=== PATIENT | male | born 1940 | race Caucasian/White ===

== ENCOUNTER 2024-06-22 18:18 | Inpatient (IN) | payer MEDICARE, OTHER, SELFPAY ==
[2024-06-22] VITALS (7 sets, daily range): BP systolic 95–137; BP diastolic 51–105; BMI 25.8; BMI 24.9
[2024-06-22 12:48] LABS: % Basophils 0.2 % (0-2); % Immature Granulocytes 0.5 % (0-0.5); % Lymphocytes 16.9 % (20.5-51.1); % Monocytes 15.1 % (1.7-9.3); % Neutrophils 67.3 % (42.2-75.2); Absolute Lymphocytes 1.1 10^3/uL (1.2-3.4); Absolute Neutrophils 4.4 10^3/uL (1.4-6.5); Hematocrit 36.5 % (39.0-52.0); Hemoglobin 12.1 g/dL (13.0-18.0); Mean Corp Hgb Conc. 33.2 g/dL (33.0-37.0); Mean Corpuscular Hgb 31.4 pg (27.0-31.0); Mean Corpuscular Volume 94.8 fL (80.0-94.0); Mean Platelet Volume 10.3 fL (7.4-10.4); Nucleated Red Blood Cells % 0 % (-); Platelet Count 169 10^3/uL (130-400); Red Blood Cell Count 3.85 10^6/uL (4.70-6.10); Red Cell Dist. Width 12.9 % (11.5-14.5); White Blood Cell Count 6.5 10^3/uL (4.8-10.8)
[2024-06-22 13:16] LABS: ALT (SGPT) 48 U/L (0-50); AST (SGOT) 59 U/L (17-59); Albumin 4.2 g/dl (3.5-5.0); Alkaline Phosphatase 69 U/L (38-126); Blood Urea Nitrogen 17 mg/dl (9-20); Calcium 8.6 mg/dl (8.4-10.2); Carbon Dioxide 26 mmol/L (22-30); Chloride 102 mmol/L (98-107); Glucose 110 mg/dl (70-99); Potassium 4.2 mmol/L (3.5-5.1); Sodium 135 mmol/L (135-145); Total Bilirubin 0.6 mg/dl (0.2-1.3); eGFR > 60.00
--- NOTE | 2024-06-22 14:40 | ED.GENMED ---
History of Present Illness
General
Chief Complaint: Cold/Flu/URI Symptoms
Source: patient and spouse
Exam Limitations: none
Time Seen by Provider: 06/22/24 14:26
Nursing documentation reviewed up to this point in time: agreed with
History of Present Illness
History of Present Illness:
Patient to ED with complaint of fever/chills, sorethroat, SOB. Tested pos for Covid on saturday. Placed on paxlovid by PCP yesterday. states this AM his pulse ox was reading 88%. Reports increasing weakness, increasing chest congestion.
Brought to ED by for eval.
Past History
Past History
ED Past Medical History: Arrthythmia, HTN and Other (CPAP, diverticulosis, vertigo, transient global amnesia)
ED Past Surgical History: Cardiac (Pacemaker), Orthopedic (Hip replacement, right hand surgery) and Other (Artery repair, hernia repair)
Social History
Tobacco: Non-smoker
Alcohol: Occasional
Drug: None
Personal:
Living: with family
Employment: Retired
Review of Systems
Review of Systems
Allergies reviewed?: Yes
All Other Systems: ROS reviewed and negative except as documented in HPI and ROS
Constitutional: Reports fever, fatigue and chills
EENT: Reports no symptoms
Respiratory: Reports cough and trouble breathing
Cardiac: Reports no symptoms
ABD/GI: Reports no symptoms
: Reports no symptoms
Musculoskeletal: Reports no symptoms
Skin: Reports no symptoms
Neurological: Reports weakness
Psychiatric: Reports no symptoms
Phy Exam
General Physical Exam
General Presentation: well appearing and no apparent distress
General age: appears stated age
General Skin: warm and dry
General Habitus: normal
General Mental: alert
ENT Exam
ENT Exam: TM's normal, neck supple, pharyngeal erythema and swallowing well
Cardiovascular Exam
Cardiovascular Exam: regular rate/rhythm and no edema
Pulmonary Exam
Pulmonary Exam: chest non tender and decreased breath sounds
Musculoskeletal Exam
Musculoskeletal Exam: full ROM and neuro vasc intact
Skin Exam
Skin Exam: normal color, warm/dry and no rash
Psychiatric Exam
Psychiatric Exam: normal mood/affect
Course
Orders/Labs/Results
Orders:
Orders
06/22/24 12:42
Complete Blood Count/With Diff Urgent
Comprehensive Metabolic Panel Urgent
06/22/24 14:39
0.9% Sodium Chloride 1000 ml [Nss] 1,000 ml IV BOLUS
Acetaminophen [Tylenol] 1,000 mg PO NOW STA
CR Chest - 2 Views Urgent
Comment:
Reason For Exam: SOB, COVID +
06/22/24 14:40
Albuterol [ProAIR HFA INHALER] 2 puff INH R NOW STA
06/22/24 14:42
0.9% Sodium Chloride 1000 ml [Nss] 1,000 ml IV BOLUS
06/22/24 Dinner
Regular
At Your Request: Full Participation
06/22/24 15:49
Meclizine [Antivert] 25 mg PO NOW STA
06/22/24 16:00
Dexamethasone Sod Phosphate [Decadron] 10 mg IV NOW STA
06/22/24 16:31
Admit/Transfer Patient As Directed
Co-Sign Provider:
Level of Care: Inpatient admission
Assign to:: Medical/Surgical
Physician / Group: vishal malcolm
Diagnosis: covid, hypoxia
Reason for Hospitalization: covid, hypoxia
Expected length of stay greater than two midnights?: Yes
ELOS- Estimated Length of Stay in days: 2
I certify the patient meets the requirements for IP care: Yes
PRN Pain Medication Management As Directed
May give lesser potent ordered pain med per pt: Yes
preference::
Protocol:: Medication orders for pain may be administered in a
manner that supports deferring to patient preference
when the pt is:
- Requesting an ordered lesser potent pain medication.
Least to most potent pain medications are defined
as: acetaminophen < NSAID < tramadol < opioids
(morphine, oxycodone, hydromorphone).
- Requesting a lesser dose of the same medication IF
ORDERED.
- Requesting a less intrusive route of administration
if both routes are prescribed by the provider (PO <
IV).
06/22/24 16:33
Code Status As Directed
Resuscitation Status: Full Code
06/22/24 16:58
Add On- LAB Urgent
Tests Added?: INR
06/22/24 19:29
0.9% Sodium Chloride 1000 ml [Nss] 1,000 ml IV 75 mls/hr
Acetaminophen [Tylenol] 650 mg PO Q4HPRN PRN
Albuterol [ProAIR HFA INHALER] 4 puff INH R QID
Benzonatate [Tessalon Perles] 100 mg PO TIDPRN PRN
Enoxaparin Sodium [Lovenox] 40 mg SC QPM
Guaifenesin [Mucinex] 600 mg PO Q12
Meclizine [Antivert] 25 mg PO Q8HPRN PRN
Ondansetron Injectable [Zofran] 4 mg IV Q6HPRN PRN
Promethazine/Codeine [Phenergan with Codeine Syrup] 5 ml PO Q4HPRN PRN
06/22/24 19:29
Activity As Directed
Activity Level: Ambulate
Vital Signs As Directed
Frequency: Per unit guidelines
Pt Eval And Treat Routine
Activity Level: Ambulate
DX Deep Vein Thrombosis Video Routine
06/22/24 20:00
Carvedilol [Coreg] 12.5 mg PO BID
Nirmatrelvir/Ritonavir [Paxlovid 2X150 mg-100 mg Dose Pack] 1 dose PO BID
06/22/24 22:00
Warfarin [Coumadin] 7.5 mg PO MOFR@0
omega 8-xyl-ihe-fish oil [Fish Oil] 1 cap PO HS
06/23/24 06:00
BMP [Basic Metabolic Panel] IN AM
CBC/No Diff [Complete Blood Count/No Diff] IN AM
CRP [C-Reactive Protein] IN AM
Ferritin IN AM
Procalcitonin IN AM
PCT Algorithmm Indication: Respiratory
Prothrombin Time IN AM
06/23/24 08:00
Cholecalciferol (Vitamin D3) [VITAMIN D3 (cholecalciferol)] 50 mcg PO DAILY
Dexamethasone Sod Phosphate [Decadron] 6 mg IV Q24H
06/23/24 22:00
Warfarin [Coumadin] 5 mg PO SUTUWETHSA@0
06/24/24 06:00
Prothrombin Time IN AM
06/25/24 06:00
Prothrombin Time IN AM
06/26/24 06:00
Prothrombin Time IN AM
06/27/24 06:00
Prothrombin Time IN AM
06/28/24 06:00
Prothrombin Time IN AM
Abnormal Lab Results
06/22/24
12:42
RBC 3.85 L 10^6/uL
(4.70-6.10)
Hgb 12.1 L g/dL
(13.0-18.0)
Hct 36.5 L %
(39.0-52.0)
MCV 94.8 H fL
(80.0-94.0)
MCH 31.4 H pg
(27.0-31.0)
Absolute Lymphs (auto) 1.1 L 10^3/uL
(1.2-3.4)
Absolute Monos (auto) 1.0 H 10^3/uL
(0.1-0.6)
Lymphocytes % 16.9 L %
(20.5-51.1)
Monocytes % 15.1 H %
(1.7-9.3)
Glucose 110 H mg/dl
(70-99)
06/22/24 12:42
06/22/24 12:42
Vital Signs
Initial and Last Documented VS:
Initial Vital Signs
Temp Pulse Resp BP Pulse Ox
101.0 F H 65 20 137/105 97
06/22/24 12:32 06/22/24 12:32 06/22/24 12:32 06/22/24 12:32 06/22/24 12:32
Last Documented Vital Signs
Temp Pulse Resp BP Pulse Ox
97.8 F 70 20 107/51 96
06/22/24 19:36 06/22/24 19:36 06/22/24 19:36 06/22/24 19:36 06/22/24 19:36
*Radiology
Radiology exam reviewed: radiology read reviewed
*Pulse Oximetry
Patient hypoxic: yes
*Critical Care Note
Total Time (30-74mins, 75-104mins- exclusive of procedures): Not Applicable
Update Note
Update Note:
Patient to ED with complaint of SOB, low pulse ox readings at home. 88%RA in ED. Placed on 2LNC, pulse ox 93%. +cough. No cp/pressure. Started on paxlovid yesterday by PCP. CXR NAD. Will admit to hospitalist nilson Giraldo hypoxemia.
ED Attending Note
-
Portions of this chart may have been created with voice recognition software.� Occasional wrong word or��sound alike� substitutions may have occurred due to the inherent limitations of voice recognition software.
Discharge Plan
Departure
Patient Disposition: Admit
Date of Disposition: 06/22/24
Time of Disposition: 15:58
Presentation/result/management discussed w/ accepting MD/DO: Hospitalist
Patient with high blood pressure during this ER visit?: No
Condition: Fair
Covid-19: Not Applicable
Discharge Problem:
COVID-19, Hypoxemia
Interventions
Interventions:
*Risk Screen - Suicide Last Done: 06/22/24 12:32
*General Assessment Last Done: 06/22/24 12:32
*Neglect/Abuse Screening Last Done: 06/22/24 12:32
*Nursing Disposition Last Done: 06/22/24 19:34
ED- Pulmonary Assessment Last Done: 06/22/24 16:16
Discharge Date and Time
Discharge Date/Time: 06/22/24 19:34
[2024-06-22] MEDS: TYLENOL 1000 MG PO (14:57)
[2024-06-22] MEDS: NSS 1000 IV ×2 (15:08→21:45)
[2024-06-22] MEDS: ProAIR HFA INHALER 2 PUFF INH (15:47)
--- NOTE | 2024-06-22 16:14 | HPS.HSE ---
Family Physician
-
Family Physician: Jess Sanchez
Chief Complaint
-
cough/SOB
History of Present Illness
83-year-old male with a past medical history of atrial fibrillation on coumadin, hypertension, vertigo, and transient global amnesia presents with cough, shortness of breath, sore throat, fever, and chills. Patient has been having the symptoms for
3 days, and they have worsened. Patient tested positive for COVID 3 days ago on 06/19/2024. He was started on Paxlovid by his PCP yesterday. Despite this, he feels weak, and his symptoms have worsened. He reports nausea, denies vomiting. No
chest pain, no diarrhea.
Medical History
Past Medical History
Past Medical History: Reports Other
Additional Past Medical History:
Vertigo
Transient global amnesia
Atrial fibrillation
Hypertension
Diverticulosis
Past Surgical History: Reports Other
Additional Past Surgical History:
Permanent pacemaker placement
Hip replacement
Right hand surgery
Artery repair
Hernia repair
Social History
Tobacco: Non-smoker
Alcohol: Occasional
Drug: None
Personal:
Living: With Family
Family History
Family History: Not pertinent
Allergies / Home Medications
Allergies reflects when Allergies were last updated in [employer].
Home Medications with original date entered in [employer]
Allergy/Medication List:
Allergies
Allergy/AdvReac Type Severity Reaction Status Date / Time
hayfever Allergy sneezing;te Uncoded 06/22/24 12:37
ars
Home Medications Table - record
�Medication �Instructions �Recorded �Confirmed
meclizine 25 mg tablet 25 mg PO Q8HPRN PRN nausea or 11/21/21
vertigo #12 tabs
acetaminophen 650 mg 650 mg PO HSPRN PRN mild pain 06/22/24 06/22/24
tablet,extended release
carvedilol 25 mg tablet 25 mg PO BID 06/22/24 06/22/24
cholecalciferol (vitamin D3) 50 50 mcg PO DAILY 06/22/24 06/22/24
mcg (2,000 unit) tablet (Vitamin
D3)
lisinopril 5 mg tablet 5 mg PO DAILY 06/22/24 06/22/24
magnesium oxide 200 mg PO DAILY 06/22/24 06/22/24
nirmatrelvir 300 mg (150 mg 0 ea PO .COMPLEX 06/22/24 06/22/24
x2)-ritonavir 100 mg tablet,dose
pack (Paxlovid)
omega 3-jfk-izf-fish oil 1,000 mg 1 cap PO HS 06/22/24 06/22/24
(120 mg-180 mg) capsule (Fish Oil)
sodium hyaluronate 1 drp BOTH EYES DAILY 06/22/24 06/22/24
vitamin B complex 1 tab PO DAILY 06/22/24 06/22/24
warfarin 5 mg tablet 5 mg PO SUTUWETHSA@219906/22/24 06/22/24
warfarin 5 mg tablet 7.5 mg PO MOFR@219906/22/24 06/22/24
Review of Systems
-
A 12 point ROS was completed and negative except as noted: Yes
Physical Exam
Vital Signs
Vital Signs
Temp Pulse Resp BP Pulse Ox
98.8 F 65 31 123/73 95
06/22/24 15:09 06/22/24 16:04 06/22/24 16:04 06/22/24 15:09 06/22/24 16:04
Physical Exam
General: No Apparent Distress and Other (Appears to not feel well)
HEENT: NormoCephalic, Anicteric and Moist mucous membranes
Respiratory: Rhonchi and Crackles
Cardiac: S1/S2 and Regular Rhythm
GI: Soft, Non Tender, Non Distended and Normal Bowel Sounds
Musculoskeletal: No Clubbing, No Cyanosis and No Edema
Skin: Warm and Dry
Neuro: Awake and Alert
Laboratory Results
-
06/22/24 12:42
06/22/24 12:42
Laboratory Results
Total Bilirubin 0.6 mg/dl (0.2-1.3) 06/22/24 12:42
AST 59 U/L (17-59) 06/22/24 12:42
ALT 48 U/L (0-50) 06/22/24 12:42
Alkaline Phosphatase 69 U/L (38-126) 06/22/24 12:42
Impression/Plan
-
HPI: 83-year-old male with a past medical history of atrial fibrillation on coumadin, hypertension, vertigo, and transient global amnesia presents with cough, shortness of breath, sore throat, fever, and chills. Patient has been having the symptoms
for 3 days, and they have worsened. Patient tested positive for COVID 3 days ago on 06/19/2024. He was started on Paxlovid by his PCP yesterday. Despite this, he feels weak, and his symptoms have worsened. He reports nausea, denies vomiting. No
chest pain, no diarrhea.
#Acute hypoxic respiratory insufficiency
#Acute coronavirus infection
Patient has been vaccinated and boostered multiple times
Satting 88% on room air, 93% on 2 L
Continue home Paxlovid day 2, start dexamethasone day 1
Supportive care, Mucinex, wean oxygen as tolerated
#Chronic vertigo
Continue meclizine as needed
#History of atrial fibrillation
Check INR
Continue Coumadin
Continue Coreg at reduced dose
#Benign essential hypertension
Blood pressure soft, hold lisinopril
DVT prophylaxis�subcu Lovenox
Full code
[2024-06-22] MEDS: ANTIVERT 25 MG PO (16:26)
[2024-06-22] MEDS: DECADRON 10 MG IV (16:26)
[2024-06-22] MEDS: ProAIR HFA INHALER 4 PUFF INH (20:08)
[2024-06-22] MEDS: ProAIR HFA INHALER INH (20:17)
[2024-06-22] MEDS: MUCINEX 600 MG PO (21:45)
[2024-06-22] MEDS: COREG 12.5 MG PO (21:45)
[2024-06-22] MEDS: PAXLOVID 2X150 MG-100 MG DOSE PACK 1 DOSE PO (22:06)
[2024-06-22 22:26] LABS: PT 26.9 Sec (11.4-14.6)
[2024-06-22] MEDS: COUMADIN 7.5 MG PO (22:55)
[2024-06-23 06:12] LABS: Hematocrit 37.3 % (39.0-52.0); Hemoglobin 12.2 g/dL (13.0-18.0); Mean Corp Hgb Conc. 32.7 g/dL (33.0-37.0); Mean Corpuscular Hgb 31.2 pg (27.0-31.0); Mean Corpuscular Volume 95.4 fL (80.0-94.0); Mean Platelet Volume 10.7 fL (7.4-10.4); Platelet Count 168 10^3/uL (130-400); Red Blood Cell Count 3.91 10^6/uL (4.70-6.10); Red Cell Dist. Width 13.1 % (11.5-14.5); White Blood Cell Count 8.3 10^3/uL (4.8-10.8)
[2024-06-23 06:13] LABS: INR 2.66; PT 28.2 Sec (11.4-14.6)
[2024-06-23 06:16] LABS: Procalcitonin 0.49 ng/ml (0.0-0.25)
[2024-06-23 06:33] LABS: Blood Urea Nitrogen 19 mg/dl (9-20); Calcium 8.9 mg/dl (8.4-10.2); Carbon Dioxide 28 mmol/L (22-30); Chloride 108 mmol/L (98-107); Estimated Creatinine Clearance 79 ml/min; Glucose 145 mg/dl (70-99); Potassium 4.2 mmol/L (3.5-5.1); Sodium 140 mmol/L (135-145); eGFR > 60.00
[2024-06-23 07:00] VITALS: BP 121/81
--- NOTE | 2024-06-23 08:06 | W.PN.HOSP.TC ---
Addendum entered and electronically signed by William Jang MD 06/26/24 14:27:
Unable to determine if patient has bacterial infection
Original Note:
Today's Communication/Plan
-
see bold
Assessment / Plan
Assessment / Plan
HPI: 83-year-old male with a past medical history of atrial fibrillation on coumadin, hypertension, vertigo, and transient global amnesia presents with cough, shortness of breath, sore throat, fever, and chills. Patient has been having the symptoms
for 3 days, and they have worsened. Patient tested positive for COVID 3 days ago on 06/19/2024. He was started on Paxlovid by his PCP yesterday. Despite this, he feels weak, and his symptoms have worsened. He reports nausea, denies vomiting. No
chest pain, no diarrhea.
#Acute hypoxic respiratory insufficiency
#Acute coronavirus infection
Patient has been vaccinated and boostered multiple times
Satting 88% on room air, 93% on 2 L
Hypoxia resolved, currently satting 96% on room air
Shortness of breath resolved, cough improving
Procalcitonin elevated, given 1 dose of IV Rocephin today, will discharge on cefdinir to complete a 5-day course
Currently on dexamethasone day 2, no need for steroids upon discharge
Medically stable for discharge, can finish his Paxlovid he has at home
Isolate, follow-up PCP in 1 week
PT rec HH
#Chronic vertigo
Continue meclizine as needed
#History of atrial fibrillation
Continue Coumadin
Continue Coreg
#Benign essential hypertension
Blood pressure improved, resume lisinopril upon discharge
DVT prophylaxis�subcu Lovenox
Full code
Physical Exam
General: No acute distress
HEENT: Normocephalic, Atraumatic, EOMI, MMM
Respiratory: Coarse breath sounds with occasional rhonchi
Cardiac: Normal S1/S2, Regular Rate and Rhythm
GI: Soft, Nontender, Nondistended, Normal Bowel Sounds
Extremities: No Clubbing, Cyanosis, or Edema
Neuro: Nonfocal/Grossly Intact
Psych: Calm, Cooperative
Derm: No Visible lesions
Anticipated Discharge: Today
Subjective/Interval History
-
Date of Service: June 23, 2024
Patient reports feeling better, shortness of breath resolved. Cough improved. His weakness has also improved. Fever resolved.
Objective Data
-
Labs:
Laboratory Results
06/22/24 06/23/24
22:02 05:28
WBC 8.3
Hgb 12.2 L
Hct 37.3 L
Plt Count 168
PT 26.9 H 28.2 H
INR 2.50 2.66
Sodium 140
Potassium 4.2
Chloride 108 H
Carbon Dioxide 28
BUN 19
Creatinine 0.8
Glucose 145 H
Calcium 8.9
Vital Signs:
Vital Signs
Temp Pulse Resp BP Pulse Ox
98.2 F 70 20 116/87 93
06/22/24 23:13 06/22/24 23:13 06/22/24 23:13 06/22/24 23:13 06/23/24 00:28
I&O
06/22/24 06/23/24 06/24/24
06:59 06:59 06:59
Intake Total 850 / 850
Output Total 1100 / 1100
Balance -250 / -250
[2024-06-23] MEDS: ProAIR HFA INHALER 4 PUFF INH ×2 (08:18→11:34)
[2024-06-23] MEDS: MUCINEX 600 MG PO (08:40)
[2024-06-23] MEDS: COREG 12.5 MG PO (08:40)
[2024-06-23] MEDS: PAXLOVID 2X150 MG-100 MG DOSE PACK 1 DOSE PO (08:40)
[2024-06-23] MEDS: DECADRON 6 MG IV (08:42)
[2024-06-23] MEDS: VITAMIN D3 (cholecalciferol) 50 MCG PO (08:42)
[2024-06-23] MEDS: NSS 1000 IV (08:45)
[2024-06-23] MEDS: STERILE WATER FOR INJECTION 10 ML IV (08:52)
[2024-06-23] MEDS: ROCEPHIN 1000 MG IV (08:52)
[2024-06-23 15:00] VITALS: BP 96/58
[2024-06-23 16:15] VITALS: BP 106/63; BP 127/69; PULSE 62; O2SAT 97
--- NOTE | 2024-06-23 16:28 | W.DCSUMMARY ---
Discharge Summary
Discharge Data
Date of Admission: 06/22/24
Date of Discharge: 06/23/24
-
Pending Results: No
Hospital Course
Discharge diagnosis:
Acute hypoxic respiratory insufficiency
Acute coronavirus infection
Chronic vertigo
Paroxysmal atrial fibrillation on Coumadin
Benign essential hypertension
CXR:
No active pulmonary process.
Hospital course:
83-year-old male with a past medical history of atrial fibrillation on coumadin, hypertension, vertigo, and transient global amnesia was admitted for acute hypoxic respiratory insufficiency secondary to acute coronavirus infection. Patient reports
having shortness of breath, cough, sore throat, fever, and chills for 3 days. He tested positive for COVID on 06/19/2024, was started on Paxlovid by his PCP 1 day prior to admission. Despite taking his Paxlovid, his symptoms worsened. He has
received his COVID vaccinations, and multiple boosters.
Patient was found to be hypoxic, satting 88% on room air. He was placed on 2 L of oxygen. Chest x-ray was negative for acute cardiopulmonary disease. He received IV dexamethasone. He was continued on Paxlovid. He also received supportive
treatment with Mucinex, and bronchodilators.
Patient was found to have an elevated procalcitonin, and he received IV Rocephin to cover for bacterial superinfection.
By the following day, he made a remarkable turnaround. His shortness of breath and hypoxia resolved. He did not require any oxygen with ambulation. He was seen in conjunction with physical therapy, who recommends home PT. Patient is medically
stable for discharge. He can finish his Paxlovid that he has at home, and he has been prescribed cefdinir to complete a 5-day course to cover for bacterial superinfection. He has been instructed to isolate, and follow-up with his primary care
doctor in 1 week.
Disposition: Home self-care, declined home visiting nurses
Discharge planning: Required 42 minutes
Discharge Plan
-
Patient Disposition: Home with Home Care
Discharge Diagnosis/Procedures: Acute hypoxic respiratory insufficiency, coronavirus
Condition: Fair
Diet: Regular
Activity: As tolerated
Driving Restrictions: As prior to admission
Activity Restrictions/Additional Instructions:
Rest, drink plenty of fluids. Isolate at home for 5 days.
Start taking the antibiotic cefdinir on 06/24/2024.
Follow-up with your primary care doctor in 1 week.
Referrals:
Fly,Jess, DO [Family Provider] - in one week
Prescriptions:
New
cefdinir 300 mg capsule
300 mg PO BID 5 Days Qty: 10 0RF
guaifenesin 600 mg Tablet Extended Release 12hr
600 mg PO Q12 Qty: 20 0RF
Continued
meclizine 25 MG tablet
25 mg PO Q8HPRN PRN (Reason: nausea or vertigo) Qty: 12 0RF
Patient Comments:
06/22/24: spouse states they still have some, but have not taken any in some time. No records of refill in [facility], may be an old bottle.
carvedilol 25 mg Tablet
25 mg PO BID
acetaminophen 650 mg Tablet Extended Release
650 mg PO HSPRN PRN (Reason: mild pain)
warfarin 5 mg Tablet
5 mg PO SUTUWETHSA@2200
warfarin 5 mg Tablet
7.5 mg PO MOFR@2200
vitamin B complex Tablet
1 tab PO DAILY
lisinopril 5 mg Tablet
5 mg PO DAILY
cholecalciferol (vitamin D3) [Vitamin D3] 50 mcg (2,000 unit) Tablet
50 mcg PO DAILY
omega 2-etq-bbe-fish oil [Fish Oil] 1,000 mg (120 mg-180 mg) Capsule
1 cap PO HS
magnesium oxide 200 mg magnesium Tablet
200 mg PO DAILY
Paxlovid 300 mg (150 mg x 2)-100 mg Tablets,Dose Pack
0 ea PO .COMPLEX
Rx Instructions:
take TWO 150 mg tablets of nirmatrelvir with ONE 100 mg tablet of ritonavir twice daily for 5 days
sodium hyaluronate 0.2 % dropperette
1 drp BOTH EYES DAILY
Discharge Orders:
Discharge Patient (As Directed); Ordered 06/23/24
Ordered By: William Jang
Discharge Date and Time
Discharge Date/Time: 06/23/24 19:30
Print Language: MALTESE
--- NOTE | 2024-06-23 16:40 | CM ---
Addendum entered by Raiza Camarena 06/23/24 16:50:
Spoke with patient concerning HH services. Patient has declined HH VN and/or PT. He feels he will not need the services. Also does not intend on being homebound.
Original Note:
Patient lives with his significant other in a 2 story home with B/B on 2nd and 1/2 bath on 1st with 1 step to enter. Patient has a RW and 2 walking poles in the home. No in-home services. 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 Pharmacy is [facility] in
[place] and PCP is Dr. Jess Sanchez. Discharge Plan of Care: Home with HH PT. Will get agency preference and send referral.
--- NOTE | 2024-06-23 16:57 | CM ---
Patient has been medically cleared for discharge to home with no additional skilled services. Patient has declined services. Patient has arranged for transport home.
[2024-06-23 19:00] VITALS: BP 128/69
--- NOTE | 2024-06-23 19:50 | PTCARENOTE ---
Pt was discharged. IV removed. belongings gathered. taken down in wheel chair by tech.
--- NOTE | 2024-06-26 08:52 | PN.CDI ---
CDI
- -
CDI:
Physician Documentation Request
Admit Date: [f_Reg Admit Date Time]
Dear Doctor Do
Please review the following and provide your response in the progress notes.
Clinical Indicators:
the patient presents with fever, cough, sore throat, and hypoxia diagnosed with COVID.
PN 06/23 Procalcitonin elevated, given 1 dose of IV Rosephin, will discharge on cefdinir to complete a 5-day course
DS: elevated procalcitonin, and received IV Rocephin to cover for bacterial superinfection
Prescriptions: cefdinir 300 mg
Please specify the suspected site of bacterial infection:
____Unspecified bacterial pneumonia
____URI
____Other specified site
____ - Unable to determine
Use of terms such as suspected, likely, concern for, or probable are acceptable for a diagnosis that is being evaluated, monitored or treated as if it exists and can be coded in the inpatient setting, when documented at the time of discharge.
Thank you,
Kiah Alicia
[employer] Developer Inpatient
Please use your independent medical judgment in providing your response.
== END 2024-06-23 19:30 | disposition home or self-care (01) | DRG 179 ==
LOC: 2 NORTH 18:18
PROVIDERS: Emergency Medicine; Registered Nurse; ADMITTING PHYSICIAN Family Medicine; EMERGENCY PHYSICIAN Emergency Medicine; FAMILY PHYSICIAN Internal Medicine
DX: U07.1 COVID-19 (principal); R06.89 Other abnormalities of breathing; R09.02 Hypoxemia; K57.30 Diverticulosis of large intestine without perforation or abscess without bleeding; I48.0 Paroxysmal atrial fibrillation; Z79.01 Long term (current) use of anticoagulants; I10 Essential (primary) hypertension; G45.4 Transient global amnesia; R42 Dizziness and giddiness; Z79.899 Other long term (current) drug therapy; Z95.0 Presence of cardiac pacemaker; Z96.649 Presence of unspecified artificial hip joint
CPT/HCPCS: 71046; 80048; 80053; 82728; 84145; 85025; 85027; 85610; 86140; 94640; 96361; 96374; 97162; 99285

== ENCOUNTER 2024-08-03 22:25 | Emergency (ER) | payer MEDICARE, OTHER, SELFPAY ==
[2024-08-03 22:35] VITALS: BP 120/58
[2024-08-03 23:18] LABS: % Basophils 0.5 % (0-2); % Eosinophils 0.2 % (0-6); % Immature Granulocytes 0.2 % (0-0.5); % Lymphocytes 18.5 % (20.5-51.1); % Monocytes 19.9 % (1.7-9.3); % Neutrophils 60.7 % (42.2-75.2); Absolute Lymphocytes 0.8 10^3/uL (1.2-3.4); Absolute Monocytes 0.9 10^3/uL (0.1-0.6); Absolute Neutrophils 2.6 10^3/uL (1.4-6.5); Hematocrit 28.4 % (39.0-52.0); Hemoglobin 9.6 g/dL (13.0-18.0); Mean Corp Hgb Conc. 33.8 g/dL (33.0-37.0); Mean Corpuscular Hgb 30.9 pg (27.0-31.0); Mean Corpuscular Volume 91.3 fL (80.0-94.0); Mean Platelet Volume 10.6 fL (7.4-10.4); Nucleated Red Blood Cells % 0 % (-); Platelet Count 126 10^3/uL (130-400); Red Blood Cell Count 3.11 10^6/uL (4.70-6.10); Red Cell Dist. Width 14.6 % (11.5-14.5); White Blood Cell Count 4.3 10^3/uL (4.8-10.8)
[2024-08-03 23:21] LABS: COVID-19 Antigen Negative (Negative)
[2024-08-03 23:38] LABS: ALT (SGPT) 18 U/L (0-50); AST (SGOT) 36 U/L (17-59); Albumin 3.8 g/dl (3.5-5.0); Alkaline Phosphatase 77 U/L (38-126); Blood Urea Nitrogen 31 mg/dl (9-20); Calcium 8.8 mg/dl (8.4-10.2); Carbon Dioxide 22 mmol/L (22-30); Chloride 103 mmol/L (98-107); Glucose 113 mg/dl (70-99); Potassium 4.6 mmol/L (3.5-5.1); Sodium 139 mmol/L (135-145); Total Bilirubin 2.1 mg/dl (0.2-1.3); Total Protein 6.7 g/dl (6.3-8.2); eGFR > 60.00
[2024-08-04 01:01] VITALS: BP 123/73
[2024-08-04 01:53] VITALS: BMI 25.8
[2024-08-04 02:00] VITALS: BP 130/76
[2024-08-04 02:27] LABS: NT-proBNP 1630 pg/ml
[2024-08-04 02:28] LABS: INR 2.78; PT 29.2 Sec (11.4-14.6)
--- NOTE | 2024-08-04 02:39 | ED.GENMED ---
History of Present Illness
General
Chief Complaint: Fever
Source: patient and spouse
Exam Limitations: none
Time Seen by Provider: 08/04/24 01:34
Nursing documentation reviewed up to this point in time: agreed with
History of Present Illness
History of Present Illness:
Patient with history of chronic atrial fibrillation on Coumadin, presents to ED secondary to worsening shortness of breath, especially with exertion over the past 3 days. Denies chest pain. Denies fever or chills. Denies coughing. Denies leg
pain or swelling. Denies back pain. Of note, patient tested positive for COVID-19 1 month ago, when he had cold-like symptoms, consisting of sore throat, nasal congestion and intermittent cough, which resolved completely after being treated with
Paxlovid. Patient had been back to his baseline health, when his symptoms started 3 days ago. However, recently, patient has decreased appetite as well as generalized weakness and increased sleeping at home.
Past History
Past History
ED Past Medical History: Arrthythmia, HTN and Other (CPAP, diverticulosis, vertigo, transient global amnesia)
ED Past Surgical History: Cardiac (Pacemaker), Orthopedic (Hip replacement, right hand surgery) and Other (Artery repair, hernia repair)
Social History
Tobacco: Non-smoker
Alcohol: Occasional
Drug: None
Personal:
Living: with family
Employment: Retired
Review of Systems
Review of Systems
Allergies reviewed?: Yes
All Other Systems: ROS reviewed and negative except as documented in HPI and ROS
Constitutional: Reports no symptoms; Denies fever
EENT: Reports no symptoms
Respiratory: Reports trouble breathing
Cardiac: Reports no symptoms
ABD/GI: Reports no symptoms
Musculoskeletal: Reports no symptoms
Skin: Reports no symptoms
Neurological: Reports no symptoms
Phy Exam
Physical Exam
Physical Exam:
Physical Exam
General: no apparent distress, not acutely ill. afebrile
Head: nc/at. eomi
Neck: supple. no meningeal signs.
Heart: s1/s2 regular rate and rhythm, no murmur. equal radial pulses.
Lungs: no acute respiratory distress. clear bilaterally
Abdomen: normal bowel sounds. not tender. rectal exam (Ivory RN, at bedside): brown stool, heme negative.
Neuro: alert and oriented. no focal neurological deficits
Skin: no rash
Psychiatric: well kept. interactive and cooperative
Extremities: no edema. no calf tenderness.
Course
Orders/Labs/Results
Orders:
Orders
08/03/24 22:39
Electrocardiogram (*1) Urgent
Reason for Study: Shortness of Breath
08/03/24 22:40
EKG- Treatment ONCE
08/03/24 22:51
COVID-19 Antigen Urgent
Source: Nasal Swab
NT-proBNP Urgent
Comment: ADD ON
08/03/24 22:54
Complete Blood Count/With Diff Urgent
Comprehensive Metabolic Panel Urgent
Lyme Progressive Urgent
08/04/24 01:57
Add On- LAB Urgent
Tests Added?: ProBNP, iron, ferritin, TIBC
CR Chest - 2 Views Urgent
Comment:
Reason For Exam: sob
08/04/24 02:07
PTT Urgent
Prothrombin Time Urgent
08/04/24 02:56
0.9% Sodium Chloride 500 ml [Nss] 500 ml IV BOLUS
Abnormal Lab Results
08/03/24 08/04/24
22:54 02:07
WBC 4.3 L 10^3/uL
(4.8-10.8)
RBC 3.11 L 10^6/uL
(4.70-6.10)
Hgb 9.6 L g/dL
(13.0-18.0)
Hct 28.4 L %
(39.0-52.0)
RDW 14.6 H %
(11.5-14.5)
Plt Count 126 L 10^3/uL
(130-400)
MPV 10.6 H fL
(7.4-10.4)
Absolute Lymphs (auto) 0.8 L 10^3/uL
(1.2-3.4)
Absolute Monos (auto) 0.9 H 10^3/uL
(0.1-0.6)
Lymphocytes % 18.5 L %
(20.5-51.1)
Monocytes % 19.9 H %
(1.7-9.3)
PT 29.2 H Sec
(11.4-14.6)
APTT 44.0 H Sec
(23.4-35.0)
BUN 31 H mg/dl
(9-20)
Glucose 113 H mg/dl
(70-99)
Total Bilirubin 2.1 H mg/dl
(0.2-1.3)
08/03/24 22:54
08/03/24 22:54
Vital Signs
Initial and Last Documented VS:
Initial Vital Signs
Temp Pulse Resp BP Pulse Ox
99.4 F 70 24 120/58 95
08/03/24 22:35 08/03/24 22:35 08/03/24 22:35 08/03/24 22:35 08/03/24 22:35
Last Documented Vital Signs
Temp Pulse Resp BP Pulse Ox
98.8 F 68 24 119/68 96
08/04/24 01:05 08/04/24 04:16 08/04/24 04:16 08/04/24 04:00 08/04/24 04:16
MDM/Problems Addressed
MDM/Problems Addressed:
Spouse reports noted what appeared to be 'bulls eye' rash on patient's forearm recently. Lyme titer pending.
Patient able to ambulate independently in ED, without assistance, without any recurrent respiratory distress nor desaturation. Blood work significant for mild pancytopenia, discussed with patient and spouse. In light of patient's presenting
symptoms, abnormal blood work, and decreased oral intake, discussed treatment options, including admission to the hospital. However, at this time, as patient did not experience any significant shortness of breath during ambulation with stable vital
signs, patient and spouse feel comfortable going home, with recommendation to follow-up with his primary care physician for reevaluation, including repeat blood work in 1 to 2 weeks. Patient will return to ED with worsening symptoms.
*Critical Care Note
Total Time (30-74mins, 75-104mins- exclusive of procedures): Not Applicable
ED Attending Note
-
Portions of this chart may have been created with voice recognition software.� Occasional wrong word or��sound alike� substitutions may have occurred due to the inherent limitations of voice recognition software.
Discharge Plan
Departure
Patient Disposition: Home (Routine Discharge)
Date of Disposition: 08/04/24
Time of Disposition: 03:33
Patient with high blood pressure during this ER visit?: Yes
Condition: Fair
Discharge Problem:
Pancytopenia, FARMER (dyspnea on exertion)
Instructions: Shortness of Breath (Dyspnea) (DC)
Prescriptions:
No Action
meclizine 25 MG tablet
25 mg PO Q8HPRN PRN (Reason: nausea or vertigo) Qty: 12 0RF
Patient Comments:
06/22/24: spouse states they still have some, but have not taken any in some time. No records of refill in [facility], may be an old bottle.
carvedilol 25 mg Tablet
25 mg PO BID
acetaminophen 650 mg Tablet Extended Release
650 mg PO HSPRN PRN (Reason: mild pain)
warfarin 5 mg Tablet
5 mg PO SUTUWETHSA@2200
warfarin 5 mg Tablet
7.5 mg PO MOFR@2200
vitamin B complex Tablet
1 tab PO DAILY
lisinopril 5 mg Tablet
5 mg PO DAILY
cholecalciferol (vitamin D3) [Vitamin D3] 50 mcg (2,000 unit) Tablet
50 mcg PO DAILY
omega [id number] oil [Fish Oil] 1,000 mg (120 mg-180 mg) Capsule
1 cap PO HS
magnesium oxide 200 mg magnesium Tablet
200 mg PO DAILY
Paxlovid 300 mg (150 mg x 2)-100 mg Tablets,Dose Pack
0 ea PO .COMPLEX
Rx Instructions:
take TWO 150 mg tablets of nirmatrelvir with ONE 100 mg tablet of ritonavir twice daily for 5 days
sodium hyaluronate 0.2 % dropperette
1 drp BOTH EYES DAILY
cefdinir 300 mg capsule
300 mg PO BID 5 Days Qty: 10 0RF
guaifenesin 600 mg Tablet Extended Release 12hr
600 mg PO Q12 Qty: 20 0RF
Referrals:
Fly,Jess, DO [Family Provider] -
Activity Restrictions/Additional Instructions:
As discussed, please follow-up with your primary care physician for reevaluation, including repeat blood work in 1 to 2 weeks. Please continue hydration at home, along with increased oral intake. Please consider returning to ED with worsening
symptoms.
Interventions
Interventions:
*Risk Screen - Suicide Last Done: 08/03/24 22:35
*General Assessment Last Done: 08/04/24 00:57
*Neglect/Abuse Screening Last Done: 08/03/24 22:35
ED- Fall Risk Assessment Last Done: 08/04/24 00:57
*ED COVID-19 Vaccine History Last Done: 08/04/24 00:57
*Nursing Disposition Last Done: 08/04/24 04:35
ED- Cardiac Assessment Last Done: 08/04/24 00:57
ED- Neurological Assessment Last Done: 08/04/24 00:57
ED- Pulmonary Assessment Last Done: 08/04/24 00:57
ED-Skin Assessment Last Done: 08/04/24 00:57
Discharge Date and Time
Discharge Date/Time: 08/04/24 04:35
Print Language: [id number]
[2024-08-04 02:56] VITALS: BP 115/71
[2024-08-04 03:00] VITALS: BP 110/70
[2024-08-04] MEDS: NSS 500 IV (03:20)
[2024-08-04 04:00] VITALS: BP 119/68
[2024-08-06 15:23] LABS: Lyme Antibody Screen, EIA Negative (Negative)
== END 2024-08-04 04:35 | disposition home or self-care (01) ==
LOC: EMR 22:25
PROVIDERS: Emergency Medicine; EMERGENCY PHYSICIAN Emergency Medicine; FAMILY PHYSICIAN Internal Medicine
DX: D61.818 Other pancytopenia (principal); R06.09 Other forms of dyspnea; I48.20 Chronic atrial fibrillation, unspecified; I10 Essential (primary) hypertension; G45.4 Transient global amnesia; Z79.01 Long term (current) use of anticoagulants; Z95.0 Presence of cardiac pacemaker
CPT/HCPCS: 99283; 96360; 71046; 80053; 83880; 85025; 85610; 85730; 86618; 87811; 93005

== ENCOUNTER → 2024-08-20 08:45 | Outpatient (REF) | payer MEDICARE, OTHER, SELFPAY ==
[2024-08-20 09:12] LABS: % Basophils 0.6 % (0-2); % Eosinophils 2.2 % (0-6); % Immature Granulocytes 0.2 % (0-0.5); % Lymphocytes 20.9 % (20.5-51.1); % Monocytes 14.4 % (1.7-9.3); % Neutrophils 61.7 % (42.2-75.2); Absolute Eosinophils 0.1 10^3/uL (0-0.7); Absolute Monocytes 0.7 10^3/uL (0.1-0.6); Absolute Neutrophils 3.1 10^3/uL (1.4-6.5); Hematocrit 26.6 % (39.0-52.0); Hemoglobin 8.3 g/dL (13.0-18.0); Mean Corp Hgb Conc. 31.2 g/dL (33.0-37.0); Mean Corpuscular Hgb 31.8 pg (27.0-31.0); Mean Corpuscular Volume 101.9 fL (80.0-94.0); Mean Platelet Volume 9.1 fL (7.4-10.4); Nucleated Red Blood Cells % 0 % (-); Platelet Count 264 10^3/uL (130-400); Red Blood Cell Count 2.61 10^6/uL (4.70-6.10); Red Cell Dist. Width 20.4 % (11.5-14.5); White Blood Cell Count 4.9 10^3/uL (4.8-10.8)
== END ==
LOC: REG 08:45
PROVIDERS: ATTENDING PHYSICIAN Internal Medicine Hematology & Oncology; FAMILY PHYSICIAN Internal Medicine
DX: D70.9 Neutropenia, unspecified (principal)
CPT/HCPCS: 36415; 85025

== ENCOUNTER → 2024-08-24 07:14 | Outpatient (REF) | payer MEDICARE, OTHER, SELFPAY ==
[2024-08-24 08:08] LABS: % Basophils 0.6 % (0-2); % Immature Granulocytes 0.2 % (0-0.5); % Lymphocytes 22.3 % (20.5-51.1); % Monocytes 10.9 % (1.7-9.3); Absolute Eosinophils 0.2 10^3/uL (0-0.7); Absolute Lymphocytes 1.1 10^3/uL (1.2-3.4); Absolute Monocytes 0.5 10^3/uL (0.1-0.6); Absolute Neutrophils 3.1 10^3/uL (1.4-6.5); Hematocrit 26.3 % (39.0-52.0); Hemoglobin 8.2 g/dL (13.0-18.0); Mean Corp Hgb Conc. 31.2 g/dL (33.0-37.0); Mean Corpuscular Hgb 31.4 pg (27.0-31.0); Mean Corpuscular Volume 100.8 fL (80.0-94.0); Nucleated Red Blood Cells % 0 % (-); Platelet Count 236 10^3/uL (130-400); Red Blood Cell Count 2.61 10^6/uL (4.70-6.10); Red Cell Dist. Width 20.3 % (11.5-14.5); White Blood Cell Count 4.9 10^3/uL (4.8-10.8)
== END ==
LOC: REG 07:14
PROVIDERS: ATTENDING PHYSICIAN Internal Medicine Hematology & Oncology; FAMILY PHYSICIAN Internal Medicine
DX: D70.9 Neutropenia, unspecified (principal)
CPT/HCPCS: 36415; 85025; 86850; 86900; 86901

== ENCOUNTER → 2024-08-27 06:52 | Outpatient (REF) | payer MEDICARE, OTHER, SELFPAY ==
[2024-08-27 07:40] LABS: % Basophils 0.5 % (0-2); % Eosinophils 3.4 % (0-6); % Immature Granulocytes 0.3 % (0-0.5); % Lymphocytes 25.5 % (20.5-51.1); % Monocytes 12.7 % (1.7-9.3); % Neutrophils 57.6 % (42.2-75.2); Absolute Eosinophils 0.1 10^3/uL (0-0.7); Absolute Monocytes 0.5 10^3/uL (0.1-0.6); Absolute Neutrophils 2.2 10^3/uL (1.4-6.5); Hematocrit 25.2 % (39.0-52.0); Hemoglobin 8.1 g/dL (13.0-18.0); Mean Corp Hgb Conc. 32.1 g/dL (33.0-37.0); Mean Corpuscular Hgb 32.3 pg (27.0-31.0); Mean Corpuscular Volume 100.4 fL (80.0-94.0); Mean Platelet Volume 9.9 fL (7.4-10.4); Nucleated Red Blood Cells % 0 % (-); Platelet Count 197 10^3/uL (130-400); Red Blood Cell Count 2.51 10^6/uL (4.70-6.10); Red Cell Dist. Width 20.1 % (11.5-14.5); White Blood Cell Count 3.8 10^3/uL (4.8-10.8)
[2024-08-27 12:26] LABS: Anisocytosis 2+
[2024-08-27 12:27] LABS: Macrocytosis 2+; Polychromasia Slight
[2024-08-27 12:28] LABS: Hypochromasia Slight
[2024-08-27 12:30] LABS: Normal RBC Morphology No
== END ==
LOC: REG 06:52
PROVIDERS: ATTENDING PHYSICIAN Internal Medicine Hematology & Oncology; FAMILY PHYSICIAN Internal Medicine
DX: D70.9 Neutropenia, unspecified (principal)
CPT/HCPCS: 36415; 85025

== ENCOUNTER → 2024-09-03 07:01 | Outpatient (REF) | payer MEDICARE, OTHER, SELFPAY ==
[2024-09-03 07:31] LABS: % Basophils 0.8 % (0-2); % Eosinophils 5.3 % (0-6); % Immature Granulocytes 0.5 % (0-0.5); % Lymphocytes 25.6 % (20.5-51.1); % Neutrophils 56.8 % (42.2-75.2); Absolute Eosinophils 0.2 10^3/uL (0-0.7); Absolute Monocytes 0.4 10^3/uL (0.1-0.6); Absolute Neutrophils 2.3 10^3/uL (1.4-6.5); Hematocrit 29.3 % (39.0-52.0); Hemoglobin 9.2 g/dL (13.0-18.0); Mean Corp Hgb Conc. 31.4 g/dL (33.0-37.0); Mean Corpuscular Hgb 32.3 pg (27.0-31.0); Mean Corpuscular Volume 102.8 fL (80.0-94.0); Mean Platelet Volume 10.2 fL (7.4-10.4); Nucleated Red Blood Cells % 0 % (-); Platelet Count 173 10^3/uL (130-400); Red Blood Cell Count 2.85 10^6/uL (4.70-6.10); Red Cell Dist. Width 18.1 % (11.5-14.5)
== END ==
LOC: REG 07:01
PROVIDERS: ATTENDING PHYSICIAN Internal Medicine Hematology & Oncology; FAMILY PHYSICIAN Internal Medicine
DX: D70.9 Neutropenia, unspecified (principal)
CPT/HCPCS: 36415; 85025

== ENCOUNTER → 2024-09-07 06:57 | Outpatient (REF) | payer MEDICARE, OTHER, SELFPAY ==
[2024-09-07 07:23] LABS: % Basophils 0.6 % (0-2); % Eosinophils 5.8 % (0-6); % Immature Granulocytes 0.3 % (0-0.5); % Lymphocytes 28.8 % (20.5-51.1); % Monocytes 13.9 % (1.7-9.3); % Neutrophils 50.6 % (42.2-75.2); Absolute Eosinophils 0.2 10^3/uL (0-0.7); Absolute Monocytes 0.5 10^3/uL (0.1-0.6); Absolute Neutrophils 1.8 10^3/uL (1.4-6.5); Hematocrit 30.1 % (39.0-52.0); Hemoglobin 9.7 g/dL (13.0-18.0); Mean Corp Hgb Conc. 32.2 g/dL (33.0-37.0); Mean Corpuscular Hgb 32.1 pg (27.0-31.0); Mean Corpuscular Volume 99.7 fL (80.0-94.0); Nucleated Red Blood Cells % 0 % (-); Platelet Count 194 10^3/uL (130-400); Red Blood Cell Count 3.02 10^6/uL (4.70-6.10); White Blood Cell Count 3.6 10^3/uL (4.8-10.8)
== END ==
LOC: REG 06:57
PROVIDERS: ATTENDING PHYSICIAN Internal Medicine Hematology & Oncology; FAMILY PHYSICIAN Internal Medicine
DX: D70.9 Neutropenia, unspecified (principal)
CPT/HCPCS: 36415; 85025

== ENCOUNTER → 2024-09-15 15:50 | Outpatient (REF) | payer MEDICARE, OTHER, SELFPAY ==
[2024-09-15 17:14] LABS: % Basophils 0.8 % (0-2); % Immature Granulocytes 0.2 % (0-0.5); % Lymphocytes 17.9 % (20.5-51.1); % Monocytes 10.3 % (1.7-9.3); % Neutrophils 67.8 % (42.2-75.2); Absolute Basophils 0.1 10^3/uL (0-0.2); Absolute Eosinophils 0.2 10^3/uL (0-0.7); Absolute Lymphocytes 1.1 10^3/uL (1.2-3.4); Absolute Monocytes 0.6 10^3/uL (0.1-0.6); Hematocrit 32.9 % (39.0-52.0); Hemoglobin 10.6 g/dL (13.0-18.0); Mean Corp Hgb Conc. 32.2 g/dL (33.0-37.0); Mean Corpuscular Hgb 31.8 pg (27.0-31.0); Mean Corpuscular Volume 98.8 fL (80.0-94.0); Mean Platelet Volume 10.5 fL (7.4-10.4); Nucleated Red Blood Cells % 0 % (-); Platelet Count 208 10^3/uL (130-400); Red Blood Cell Count 3.33 10^6/uL (4.70-6.10); Red Cell Dist. Width 15.1 % (11.5-14.5); White Blood Cell Count 5.9 10^3/uL (4.8-10.8)
== END ==
LOC: REG 15:50
PROVIDERS: ATTENDING PHYSICIAN Internal Medicine Hematology & Oncology; FAMILY PHYSICIAN Internal Medicine
DX: D70.9 Neutropenia, unspecified (principal)
CPT/HCPCS: 36415; 85025

== ENCOUNTER → 2025-04-27 09:45 | Outpatient (REF) | payer MEDICARE, OTHER, SELFPAY ==
[2025-04-27 12:05] LABS: Ferritin 37.6 ng/ml (17.9-464.0)
[2025-04-27 12:35] LABS: Iron 76 ug/dl (49-181)
[2025-04-27 12:45] LABS: Percent Saturation 25 % (20-50); Total Iron Binding Capacity 293 ug/dl (261-462)
[2025-04-29 03:21] LABS: Haptoglobin 103 mg/dL (30-200)
== END ==
LOC: REG 09:45
PROVIDERS: ATTENDING PHYSICIAN Internal Medicine Hematology & Oncology; FAMILY PHYSICIAN Internal Medicine
DX: D70.9 Neutropenia, unspecified (principal); U07.1 COVID-19
CPT/HCPCS: 36415; 82728; 83010; 83540; 83550; 85045